=== PATIENT | male | born 1960 | race Caucasian/White ===

== ENCOUNTER 2022-06-17 07:55 | Outpatient (REF) | payer BC, SELFPAY ==
--- NOTE | ~2022-06-17 | XR_ITS ---
EXAMINATION: XR HIP, RIGHT CLINICAL INFORMATION: Right hip pain COMPARISON: None available. TECHNIQUE: Two views of the right hip. FINDINGS: Bones and soft tissues are normal. No fracture. Alignment is anatomic. Hip joint space is maintained. XR/XR hip RT min 2V IMPRESSION: Normal right hip.
[2022-06-17 09:41] LABS: MANUAL DIFF FLAG NO
[2022-06-17 10:32] LABS: Basophils Absolute Auto 0.1 X10*3/uL (0.0-0.2); Basophils Percent Auto 1.1 % (0-2); Eosinophils Absolute Auto 0.2 X10*3/uL (0.0-0.4); Eosinophils Percent Auto 2.2 % (0-4); Hematocrit 47.1 % (42.0-52.0); Hemoglobin 15.6 g/dl (14.0-18.0); Imm Gran Abs Auto 0.06 X10*3/uL (0.00-0.03); Imm Gran Pct Auto 0.8 % (0.0-0.4); Lymphocytes Absolute Auto 2.3 X10*3/uL (1.2-4.9); Lymphocytes Percent Auto 29.8 % (20-40); Mean Corpuscular HGB Conc 33.1 g/dl (31.0-36.0); Mean Corpuscular Hemoglobin 30.7 pg (27.0-33.0); Mean Corpuscular Volume 92.7 fL (80.0-98.0); Mean Platelet Volume 10.2 fL (9.4-12.4); Monocytes Absolute Auto 0.4 X10*3/uL (0.1-1.2); Monocytes Percent Auto 5.8 % (2-11); Neutrophils Absolute Auto 4.6 x10*3/uL (2.0-8.3); Neutrophils Percent Auto 60.3 % (45-73); Platelet Count 227 X10*3/uL (160-400); Red Blood Count 5.08 X10*6/uL (4.60-5.80); White Blood Count 7.6 X10*3/uL (4.8-10.8)
[2022-06-17 11:03] LABS: Alanine Aminotransferase 49 U/L (0-40); Albumin Level 4.2 g/dL (3.5-5.0); Alkaline Phosphatase 72 U/L (39-117); Anion Gap 11 (12-20); Aspartate Amino Transferase 36 U/L (5-37); Bilirubin Total 0.6 mg/dL (0.0-1.0); Blood Urea Nitrogen 10 mg/dL (9-16); Carbon Dioxide 26 mmol/L (22-29); Chloride 104 mmol/L (96-108); Estimated Glomerular Filt Rate 57; Glucose Random 95 mg/dL (60-115); Potassium 4.4 mmol/L (3.3-5.1); Sodium 137 mmol/L (135-145); Uric Acid 5.3 mg/dL (3.4-7.0)
== END 2022-06-17 07:56 | disposition home or self-care (01) ==
LOC: HO.XRAY 07:55
PROVIDERS: PCP Pediatrics; Visit Provider Nurse Practitioner Family
DX: M10.9 Gout, unspecified (principal); M25.551 Pain in right hip; M79.641 Pain in right hand; M25.50 Pain in unspecified joint; H60.90 Unspecified otitis externa, unspecified ear; M65.9 Synovitis and tenosynovitis, unspecified; Z79.899 Other long term (current) drug therapy
CPT/HCPCS: 36415; 73502; 80053; 84550; 85025

== ENCOUNTER → 2022-07-21 13:49 | Outpatient (BNVA) | payer BC, SELFPAY | PROVIDERS: PCP Pediatrics; Visit Provider Orthopaedic Surgery ==

== ENCOUNTER 2022-08-20 09:49 | Day surgery (SDC) | payer BC, SELFPAY ==
[2022-08-20 10:07] VITALS: BMI 35.9
[2022-08-20 10:09] VITALS: BP 137/75; PULSE 79; RESP 16; TEMP 36.6; O2SAT 96
--- NOTE | 2022-08-20 11:00 | MHC.SHP ---
Pre-Procedural Eval Section A Date of Service: 08/20/22 The patient is an INPATIENT: No Changes since office visit: No Cold of Flu in the past 2 weeks, No New Medical Problems, No Changes in Medication and No Patient answered all questions The History & Physical has been completed within 30 days and I have reviewed it.: Yes Section B Chief Complaint: Trigger finger, right ring finger Allergies: Allergies Allergy/AdvReac Type Severity Reaction Status Date / Time Penicillins Allergy Mild Rash Verified 07/21/22 14:00 tramadol Allergy Mild Headache Verified 07/21/22 14:00 Plan I have reviewed the history and physical and performed a pertinent physical examination on my patient. No changes have occurred unless specified. Time Spent With Patient Time: Total time managing care of this patient today ____ minutes.
--- NOTE | 2022-08-20 11:01 | P.OP_ITS ---
Operative Note Operative Note Date of Service: 08/20/22 Narrative: Operative Note Preop diagnosis: 1. right ring finger Trigger finger Postop diagnosis: 1. right ring finger Trigger finger Procedure: 1. right ring finger A1 becki release Surgeon: Allie Strickland MD Anesthesia: local block using 1% lidocaine with epinephrine Findings: No locking or catching after A1 becki release EBL: Less than 5 mL Tourniquet time: None Specimens: None Complications: None Disposition: Brought to recovery room in stable condition Plan: Follow-up for 10-14 days for wound check and suture removal Indications: The patient is 62 years old, with a right ring finger trigger finger that has been unresponsive to nonoperative management. The risks and benefits of operative treatment including but not limited to risk of damage to blood vessels, nerves, tendons, infection, persistent pain, persistent symptoms, recurrence or possible need for additional surgery were discussed with the patient and the patient wishes to proceed with surgery. Procedure: Once consent was obtained a local block was performed in the preop area using a combination of 1% lidocaine with epinephrine. The patient was then brought back to the operating suite and placed on the operative table in supine position. The right upper extremity was prepped and draped in a standard surgical fashion. Once assured that we had a good block, a 1.5 cm oblique incision was made c entered over the A1 becki of the right ring finger . The incision was made through the skin to the subcutaneous tissues using a #15 blade. Careful dissection was made down to the level of the A1 becki using tenotomy scissors, with care being taken to protect the nearby neurovascular structures. A longitudinal incision was made in the A1 becki 1st using a #15 blade, then using tenotomy scissors under direct visualization. The A1 becki was noted to be thickened. Following our A1 becki release, we no longer saw any locking or catching of the digit with flexion and extension. Once satisfied with our A1 becki release the wound was copiously irrigated with normal saline and hemostasis was obtained with a brief period of local pressure. The skin edges were reapproximated with some 5.0 nylon suture material and a sterile dressing was applied. The patient appears to have tolerated the procedure well and with no complications. All digits were well vascularized at the conclusion of the case.
[2022-08-20 11:53] VITALS: BP 136/67; PULSE 73; RESP 18; O2SAT 95
== END 2022-08-20 11:56 | disposition home or self-care (01) ==
PROVIDERS: PCP Pediatrics; Visit Provider Orthopaedic Surgery
PROC: (CPT 26055; principal; 2022-08-20 11:20)
DX: M65.341 Trigger finger, right ring finger (principal); M10.9 Gout, unspecified; E78.1 Pure hyperglyceridemia; E03.9 Hypothyroidism, unspecified; E66.9 Obesity, unspecified; Z79.899 Other long term (current) drug therapy; Z88.0 Allergy status to penicillin; Z88.8 Allergy status to other drugs, medicaments and biological substances
CPT/HCPCS: 26055; J0171

== ENCOUNTER → 2022-09-02 11:12 | Outpatient (BNVA) | payer BC, SELFPAY | PROVIDERS: Visit Provider Physician Assistant ==

== ENCOUNTER 2022-09-28 08:56 | Outpatient (AMB) | payer BC, SELFPAY ==
--- NOTE | 2022-09-28 08:58 | A.OFFVIS_ITS ---
Intake Vital Signs 09/28/22 09:03 Height 5 ft 10 in Weight 287 lb 11.252 oz BMI 41.3 BP 128/74 Blood Pressure Location Rt brachial Position Sitting Pulse 82 Pulse Source Pulse Oximeter Temp 97.3 F Temp Source Skin Pulse Oximetry (%) 95 Intake Visit Reasons: gout Intake Note: * Pt seen today for gout follow up. * Right elbow swollen and pain in hand; s/p right hand trigger finger surgery end of July. 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 He has known gout, currently on allopurinol 200 mg daily. In the past he had been on 300 mg daily but it was reduced. The uric acid target seemed to remain within the goal so he was continued on 200 mg daily. He was on colchicine but it was stopped last year because he had no further attacks. However he has been bothered more recently by painful swelling in the right olecranon region. From his descriptions this looks like a bursitis. It has usually been painful with pressure over the past 2 months. Intermittently it becomes swollen and more painful. No drainage has been noted. He claims to be compliant with taking the allopurinol every day. About a month ago he had surgery on the right 4th finger where he had some triggering. Triggering is gone but he still notes some stiffness in the finger and some pain at the 4th PIP when he tries to fully extend the 4th middle phalanx. [facility] Medical History Erectile dysfunction Gout Hypertriglyceridemia Hypothyroidism Obesity Trigger middle finger of right hand Surgical History S/P foot surgery, right Family History Father No problems noted. Son Diabetes Mother No problems noted. Social History Alcohol intake: current Alcohol intake frequency: holidays/special occasions only Patient Tobacco Use Status: Never used Tobacco Review of Systems Const Details: Negative for appetite change, weight change, fever, chills, malaise and fatigue Eyes Details: Negative for vision change, dry eyes,headaches and dizziness Card Details: Negative chest pain, edema and syncope Resp Details: Negative for SOB, cough and wheezing Skin/Breast Details: Negative for itching, rash, hives, Raynaud's symptoms, sun sensitivity, and skin cancer Rashad/Lymph Details: Negative for excessive bruising or bleeding. Physical Exam Vital Signs: Last Vital Signs Temp 97.3 F 09/28/22 09:03 Pulse 82 09/28/22 09:03 BP 128/74 09/28/22 09:03 Pulse Ox 95 09/28/22 09:03 BMI result Body Mass Index 41.3 APPEARANCE: Patient in no acute distress EXTREMITIES: No edema, no calf tenderness, normal peripheral pulses. SKIN: No inflammatory or neoplastic lesions. Normal color and turgor JOINT EXAM: Hands: LEFT: Normal pain-free range of motion without tenderness, swelling, increased warmth or erythema. 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 ? RIGHT:? Normal range of motion.? Tenderness to palpation over the flexor tendon of the 4th digit. No catching is detected. There is a bit more tenderness over the 4th PIP which is painful when he attempts to fully extend the middle phalanx. His other joints are not tender or painful. Wrists:? Normal pain-free range of motion without tenderness, swelling, increased warmth or erythema. Elbows: Right: Slight discomfort with extremes of normal flexion or extension. There is mild tenderness over the olecranon process with some slight thickening of the bursa but no redness, fluctuance or warmth. There is some minimal tenderness over the joint space without swelling. Left: Normal pain-free range of motion without tenderness, swelling, increased warmth or erythema. Shoulders: LEFT: Full range of motion without pain. No tenderness, weakness, swelling, increased warmth or erythema. ? RIGHT:? Full range of motion with pain during full abduction and flexion.? Some pain with internal rotation.? Tenderness to palpation over the AC joint.? No swelling, increased warmth or erythema. Hips: LEFT:? Full range of motion without pain. ? RIGHT:? Full range of motion without pain. Hip bursa:? No tenderness. Knees:? Normal pain-free range of motion without tenderness, swelling, increased warmth or erythema.? There is no effusion or crepitation Ankles:? Normal pain-free range of motion without tenderness, swelling, increased warmth or erythema. Feet: LEFT:? Normal pain-free range of motion without tenderness, swelling, increased warmth or erythema.? Significant bunion deformity.? Cock-up deformity of the 2nd toe consistent with hammertoe. ? RIGHT: Normal pain-free range of motion without tenderness, swelling, increased warmth or erythema.? Significant bunion deformity.? Cock-up deformity of the 2nd toe consistent with hammertoe. Healed scar over the first MTP. Results Reviewed Results Reviewed: Laboratory Tests 06/17/22 06/17/22 09:41 09:41 Hgb 15.6 Creatinine 1.28 Uric Acid 5.3 AST 36 ALT 49 H Assessment & Plan Assessment & Plan (1) Gout: Code(s): M10.9 - Gout, unspecified (2) Pain in right elbow: Code(s): M25.521 - Pain in right elbow (3) Olecranon bursitis, right elbow: Code(s): M70.21 - Olecranon bursitis, right elbow Plan His hyperuricemia seems corrected with current dose of allopurinol but he has been having these episodes of painful swelling in the right olecranon bursa. That does suggest gout so 1 wonder if we need to push harder on the allopurinol dose or not. There could be some intermittent infection in that area but today it does not look infected or even inflamed, just slightly tender. We will check an x-ray of the elbow. I will also repeat his uric acid and inflammatory markers. Certainly if the uric acid is above 6 we will increase the allopurinol dose and add colchicine. We may actually do that anyway in light of his recurrent symptoms in the right elbow. In the meantime he was told to avoid putting weight on the olecranon process which would be exacerbating any kind of bursitis that could be there. We will see him in the fall but I will get back to him with the results of his blood work. Orders: Orders C Reactive Protein Today M10.9 - Gout, unspecified Erythrocyte Sedimentation Rate Today M10.9 - Gout, unspecified Basic Metabolic Panel Today M10.9 - Gout, unspecified Uric Acid Today M10.9 - Gout, unspecified XR elbow RT min 3V Today M10.9 - Gout, unspecified, M25.521 - Pain in right elbow Coding Level of Care Code Est Pt Level 3 (79470) Diagnoses Gout M10.9 Pain in right elbow M25.521 Olecranon bursitis, right elbow M70.21
[2022-09-28 09:03] VITALS: BP 128/74; PULSE 82; TEMP 36.3; O2SAT 95; BMI 41.3
== END 2022-09-28 10:28 | disposition home or self-care (01) ==
PROVIDERS: PCP Pediatrics; Visit Provider Internal Medicine Rheumatology
DX: M10.9 Gout, unspecified (principal); M25.521 Pain in right elbow; M70.21 Olecranon bursitis, right elbow
CPT/HCPCS: 99213

== ENCOUNTER 2022-09-28 08:56 | Outpatient (REF) | payer BC, SELFPAY ==
--- NOTE | ~2022-09-28 | XR_ITS ---
EXAMINATION: XR ELBOW, RIGHT CLINICAL INFORMATION: Pain COMPARISON: None available. TECHNIQUE: AP, lateral, and oblique views of the right elbow. FINDINGS: No acute visible fracture or dislocation. Enthesopathy at the triceps tendon insertion site. Joint spaces and alignment are maintained. No large elbow joint effusion. Soft tissues are unremarkable. XR/XR elbow RT min 3V IMPRESSION: 1. No acute visible fracture or dislocation. 2. Enthesopathy at the triceps tendon insertion site.
== END 2022-09-28 08:57 | disposition home or self-care (01) ==
LOC: HO.XRAY 08:56
PROVIDERS: PCP Pediatrics; Visit Provider Internal Medicine Rheumatology
DX: M10.9 Gout, unspecified (principal); M25.521 Pain in right elbow; M70.21 Olecranon bursitis, right elbow
CPT/HCPCS: 73080

== ENCOUNTER 2022-09-28 10:32 | Outpatient (REF) | payer BC, SELFPAY ==
[2022-09-28 14:29] LABS: Erythrocyte Sedimentation Rate 12 MM/HR (0-15)
[2022-09-28 14:54] LABS: Anion Gap 14 (12-20); Blood Urea Nitrogen 12 mg/dL (9-16); C Reactive Protein 1.52 mg/dL (< or = 0.50); Calcium 9.5 mg/dL (8.4-10.2); Carbon Dioxide 23 mmol/L (22-29); Chloride 103 mmol/L (96-108); Estimated Glomerular Filt Rate > 60; Glucose Random 153 mg/dL (60-115); Potassium 4.2 mmol/L (3.3-5.1); Sodium 136 mmol/L (135-145); Uric Acid 5.3 mg/dL (3.4-7.0)
== END 2022-09-28 10:33 | disposition home or self-care (01) ==
LOC: HO.10HDL 10:32
PROVIDERS: Visit Provider Internal Medicine Rheumatology
DX: M10.9 Gout, unspecified (principal); M25.521 Pain in right elbow
CPT/HCPCS: 36415; 80048; 84550; 85652; 86140

== ENCOUNTER 2023-01-27 09:31 | Outpatient (REF) | payer BC, SELFPAY ==
--- NOTE | ~2023-01-27 | XR_ITS ---
EXAMINATION: XR SHOULDER, RIGHT CLINICAL INFORMATION: Right shoulder pain, history of mechanical fall 3 years ago. COMPARISON: None available. TECHNIQUE: AP external rotation, Grashey, scapular Y, and axillary views of the right shoulder. FINDINGS: BONES: Bony structures are intact. Small osteophyte is seen at inferior border of right humeral head. There is no focal bone destruction or periosteal reaction seen. JOINTS: Alignment of joints is normal. SOFT TISSUE: Soft tissue is normal. No radiopaque foreign body or abnormal air collection is seen. XR/XR shoulder RT min 2V IMPRESSION: 1. Osteoarthritis of the right glenohumeral joint. No fracture or dislocation or signs of osteomyelitis are found.
== END 2023-01-27 09:32 | disposition home or self-care (01) ==
LOC: HO.XRAY 09:31
PROVIDERS: PCP Pediatrics; Visit Provider Internal Medicine Rheumatology
DX: M25.511 Pain in right shoulder (principal)
CPT/HCPCS: 73030

== ENCOUNTER 2023-01-27 09:31 | Outpatient (AMB) | payer BC, SELFPAY ==
--- NOTE | 2023-01-27 09:42 | MHC.OFFVIS ---
Intake Vital Signs 01/27/23 09:49 Height 5 ft 10 in Weight 281 lb 12.012 oz BMI 40.4 BP 136/78 Blood Pressure Location Lt brachial Position Sitting Pulse 78 Pulse Source Pulse Oximeter Temp 97.1 F Temp Source Skin Pulse Oximetry (%) 98 Oxygen Delivery Method Room Air Intake Visit Reasons: Gout Intake Note: Patient presents today to follow up on gout. c/o left elbow pain, on and off, states it does not feel like a gout flare up. 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 He remains on 200 mg allopurinol daily but actually stopped it 2 weeks ago when he had a URI. He was concerned that allopurinol could be impairing his recovery from the URI. In any case he has not had any gout attacks for quite some time. He does get some occasional right elbow pain over the olecranon region and also right shoulder pain. Shoulder pain dates back he says about 3 years. He had fallen on some ice. It was quite painful for a few days and then gradually subsided but seems to come back intermittently over the last year or 2. It is worse when he is more active. [facility] Medical History Erectile dysfunction Gout Hypertriglyceridemia Hypothyroidism Obesity Trigger middle finger of right hand Surgical History S/P foot surgery, right Family History Father No problems noted. Son Diabetes Mother No problems noted. Social History Alcohol intake: current Alcohol intake frequency: holidays/special occasions only Patient Tobacco Use Status: Never used Tobacco Review of Systems Const Details: Negative for appetite change, weight change, fever, chills, malaise and fatigue Eyes Details: Negative for vision change, dry eyes,headaches and dizziness ENT Details: Recent URI with nasal congestion and rhinorrhea. Negative for hearing change, tinnitus, oral ulcer, nose bleeds and oral dryness. Card Details: Negative chest pain, edema and syncope Resp Details: Recent URI with nonproductive cough but that has subsided. Negative for SOB, cough and wheezing GI Details: Negative indigestion/heartburn, nausea, abdominal pain, bowel changes, diarrhea, constipation and bloody stool. Skin/Breast Details: Negative for itching, rash, hives, Raynaud's symptoms, sun sensitivity, and skin cancer Endo Details: Negative for polyuria and polydypsia Rashad/Lymph Details: Negative for excessive bruising or bleeding. Physical Exam Vital Signs: Last Vital Signs Temp 97.1 F 01/27/23 09:49 Pulse 78 01/27/23 09:49 BP 136/78 01/27/23 09:49 Pulse Ox 98 01/27/23 09:49 Oxygen Delivery Method Room Air 01/27/23 09:49 BMI result Body Mass Index 40.4 APPEARANCE: Patient in no acute distress Hands: LEFT: Normal pain-free range of motion without tenderness, swelling, increased warmth or erythema. 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 ? RIGHT:? Normal range of motion.? No flexor tendon tenderness, swelling or catching is detected. His MCP and PIP joints are not tender or painful the with motion. Wrists:? Normal pain-free range of motion without tenderness, swelling, increased warmth or erythema. Elbows: Right: No discomfort with extremes of normal flexion or extension. There is minimal tenderness over the olecranon process with some slight thickening of the bursa but no redness, fluctuance or warmth. There is some no tenderness over the joint space without swelling. Left: Normal pain-free range of motion without tenderness, swelling, increased warmth or erythema. Shoulders: LEFT: Full range of motion without pain. No tenderness, weakness, swelling, increased warmth or erythema. ? RIGHT:? Mild to moderate pain with abduction 120 degrees or with extremes of internal or external rotation. There is mild anterior and subacromial tenderness without swelling, adenopathy or abductor weakness. Slight tenderness over the AC joint.? . Hips: LEFT:? Full range of motion without pain. ? RIGHT:? Full range of motion without pain. Hip bursa:? No tenderness. Knees:? Normal pain-free range of motion without tenderness, swelling, increased warmth or erythema.? There is no effusion or crepitation Ankles:? Normal pain-free range of motion without tenderness, swelling, increased warmth or erythema. Feet: LEFT:? Normal pain-free range of motion without tenderness, swelling, increased warmth or erythema.? Significant bunion deformity.? Cock-up deformity of the 2nd toe consistent with hammertoe. ? RIGHT: Normal pain-free range of motion without tenderness, swelling, increased warmth or erythema.? Significant bunion deformity.? Cock-up deformity of the 2nd toe consistent with hammertoe. The 1st MTP has no motion from previous fusion. There is a healed nontender scar over the first MTP. ? Results Reviewed Results Reviewed: Laboratory Tests 06/17/22 06/17/22 09/28/22 09:41 09:41 10:35 ESR 12 Uric Acid 5.3 AST 36 ALT 49 H C-Reactive Protein 1.52 H 09/28/22 10:35 ESR Uric Acid 5.3 AST ALT C-Reactive Protein [address] [address] XRay Report Signed Patient: Gary Araujo MR#: [id number] : 1960 Acct:[id number] Age/Sex: 62 / M ADM Date: 09/28/[address]: Gary Quintero MD Ordering Physician: Gary Quintero MD Date of Service: 09/28/22 Procedure(s): XR elbow RT min 3V Accession Number(s): [id number] cc: Gary Quintero MD~ EXAMINATION: XR ELBOW, RIGHT CLINICAL INFORMATION: Pain COMPARISON: None available. TECHNIQUE: AP, lateral, and oblique views of the right elbow. FINDINGS: No acute visible fracture or dislocation. Enthesopathy at the triceps tendon insertion site. Joint spaces and alignment are maintained. No large elbow joint effusion. Soft tissues are unremarkable. XR/XR elbow RT min 3V IMPRESSION: 1. No acute visible fracture or dislocation. 2. Enthesopathy at the triceps tendon insertion site. Dictated By: Casper Almodovar MD Signed By: <Electronically signed by Casper Almodovar MD in OV> Assessment & Plan Assessment & Plan (1) Shoulder pain, right: Code(s): M25.511 - Pain in right shoulder (2) Olecranon bursitis, right elbow: Code(s): M70.21 - Olecranon bursitis, right elbow (3) Gout: Code(s): M10.9 - Gout, unspecified Plan The gout symptoms and hyperuricemia seem well controlled with current dose of allopurinol. I told him it was not advisable to stop and start the allopurinol as such maneuvers could trigger gout attacks. He will go back on 100 mg for 5 days and back up to his usual dose of 200 mg daily. The patient has some mild tenderness in the right olecranon bursa region associated with an olecranon spur. So this looks like some bursitis. It is not significantly bothering him right now. The right shoulder pain with motion has been present off and on for years. It sounds like he might have injured the rotator cuff with a fall many years ago. We will check an x-ray to see what the glenohumeral and AC joints look like. He is sent for physical therapy. We will have him back in a few months to see if the shoulder is improving. At that point he may benefit from an injection or surgical evaluation. Orders: Orders XR shoulder RT min 2V Today M25.511 - Pain in right shoulder PT Evaluation and Treatment Today M25.511 - Pain in right shoulder Coding Level of Care Code Est Pt Level 3 (61370) Diagnoses Shoulder pain, right M25.511 Olecranon bursitis, right elbow M70.21 Gout M10.9
[2023-01-27 09:49] VITALS: BP 136/78; PULSE 78; TEMP 36.2; O2SAT 98; BMI 40.4
== END 2023-01-27 10:10 | disposition home or self-care (01) ==
PROVIDERS: PCP Pediatrics; Visit Provider Internal Medicine Rheumatology
DX: M25.511 Pain in right shoulder (principal); M70.21 Olecranon bursitis, right elbow; M10.9 Gout, unspecified
CPT/HCPCS: 99213

== ENCOUNTER 2023-03-11 10:00 | Outpatient (RCR) | payer BC, SELFPAY ==
--- NOTE | 2023-02-16 09:41 | MHC.PT.EP ---
[facility] [place] Office [place] Office [place] Office [address] Dana Goins [address] [phone] F: [phone] F: [phone] F: [phone] F: [phone] Physical Therapy Plan of Care Date of Evaluation: 02/16/23 Date of Surgery: N/A Diagnosis: right shoulder pain (RL) Assessment: pt is a 62 y/o male presenting to physical therapy w/ referring diagnosis of right shoulder pain. Impairments include pain, decreased range of motion, decreased strength, impaired functional mobility, impaired postural awareness, and altered ambulation mechanics. pt is a good candidate for skilled PT due to age, potential remediation of impairments, typical disease/condition progression and prognosis, comorbidities, and motivation. pt would benefit from skilled PT intervention to provide a tailored strengthening and stretching exercise program, functional training, gait training, postural re-training, neuromuscular re-education, modalities as needed for pain, equipment safety demonstration. Frequency and Duration: The patient will be seen 2x/wk for 4 wks Short Term Goals: pt will be I w/ HEP to promote self-management of condition. pt will improve R shoulder flexion by at least 10 degrees to promote ease in reaching for objects on higher shelves. Intermediate Goals: pt will report a statistically significant improvement in self-reported outcome measure, SPADI, to promote return to PLOF. pt will report <2/10 R shoulder pain w/ lifting 30# object from floor to waist height x5 reps. Treatment Plan: Modalities to reduce pain, spasms and effusion. Manual therapy to restore motion and function. Therapeutic exercise to improve strength and flexibility. Neuromuscular re-education for posture and balance. Therapeutic activities to return to functional activities of daily living. Electronically signed by: Vannesa Lind PT, DPT Please sign and return to therapist. Thank you for your referral.
--- NOTE | 2023-03-11 15:17 | MHC.PT.DC ---
[facility] [place] Office [place] Office [place] Office [address] Dana Goins [address] [facility] [phone] F: [phone] F: [phone] F: [phone] F: [phone] Physical Therapy Discharge Report Diagnosis: right shoulder pain (RL) Date of Surgery: N/A Date of Evaluation: 02/16/23 Date of Discharge: 03/11/23 Treatments to Date: 8 Cancellations to Date: 0 No Shows to Date: 0 Discharge Status: Improved Function Independent with HEP Discharge Summary: The patient overall has been reporting less intense shoulder pain. He is able to do more with his arms including working out his upper body at the gym. He is independent with his home exercise program and is discharged with the recommendation to continue on his own. Electronically signed by: Vannesa Lind PT, DPT Please sign and return to therapist. Thank you for your referral.
== END 2023-03-11 15:17 | disposition home or self-care (01) ==
LOC: HO.PT 10:00
PROVIDERS: PCP Pediatrics; Visit Provider Internal Medicine Rheumatology
DX: M25.511 Pain in right shoulder (principal)
CPT/HCPCS: 97110; 97161; 97530

== ENCOUNTER 2023-04-21 09:07 | Outpatient (AMB) | payer BC, SELFPAY ==
--- NOTE | 2023-04-21 09:09 | A.OFFVIS_ITS ---
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 Quintero, presents today for shoulder pain follow up. PT has been attending PT. Reports burning sensation on right shoulder, one episode last week that lasted 2-3 days. Retanner Required: No Accompanied by: Self / Same As Patient Allergies Penicillins Allergy (Mild, Verified 04/21/23 09:09) Rash tramadol Allergy (Mild, Verified 04/21/23 09:09) Headache HPI HPI Comments History of Present Illness Details Mr. Araujo, 63yoM returns for evaluation of his gout. He remains on 200 mg allopurinol daily. He denies any gout flares for quite some time and none since last visit 12/2022. He does get some occasional right elbow pain over the olecranon region and also right shoulder pain. Shoulder pain dates back he says about 3 years. He had fallen on some ice. He did finist PT about 4 weeks ago and he found that to be helpful. But this week he reached overhead to a cupboard and felt a twinge. It is worse when he is more active. Concerns to see the podiatry soon --painful callus under bilateral foot pa d --broken fixation plate right big toe wi th mild bruising. [facility] Medical History (Reviewed 09/02/22 @ 11:17 by Salena Webb [facility]) Erectile dysfunction Gout Hypertriglyceridemia Hypothyroidism Obesity Trigger middle finger of right hand Surgical History S/P foot surgery, right Family History Father No problems noted. Son Diabetes Mother No problems noted. Social History Alcohol intake: current Alcohol intake frequency: holidays/special occasions only Patient Tobacco Use Status: Never used Tobacco Review of Systems Const All systems reviewed & are unremarkable except as noted in HPI and below Physical Exam Vital Signs: Last Vital Signs Temp 97 F 04/21/23 09:10 Pulse 85 04/21/23 09:10 BP 108/74 04/21/23 09:10 Pulse Ox 98 04/21/23 09:10 Oxygen Delivery Method Room Air 04/21/23 09:10 BMI result Body Mass Index 39.6 APPEARANCE: Patient in no acute distress NECK:? No thyromegaly or masses, no adenopathy, trachea midline. HEART:? Regular rhythm, S1-S2 heard, no murmurs, rubs or gallops. LUNG:? Clear to percussion and auscultation Hands: LEFT: Normal pain-free range of motion without tenderness, swelling, increased warmth or erythema. Able to make a full fist and has a good alliance director strength. ? RIGHT:? Normal range of motion.? No flexor tendon tenderness, swelling or catching is detected. His MCP and PIP joints are not tender or painful the with motion. Wrists:? Normal pain-free range of motion without tenderness, swelling, increased warmth or erythema. Elbows: Right: No discomfort with extremes of normal flexion or extension. There is no more tenderness over the olecranon process but there is some slight thickening of the bursa but no redness, fluctuance or warmth. There is no tenderness over the joint space, no swelling. Left: Normal pain-free range of motion without tenderness, swelling, increased warmth or erythema. Shoulders: LEFT: Full range of motion without pain. No tenderness, weakness, swelling, increased warmth or erythema. ? RIGHT:? Mild to moderate pain with abduction 120 degrees or with extremes of internal or external rotation. There is mild anterior and subacromial tenderness without swelling, adenopathy or abductor weakness. Slight tenderness over the AC joint.? . Hips: LEFT:? Full range of motion without pain. ? RIGHT:? Full range of motion without pain. Hip bursa:? No tenderness. Knees:? Normal pain-free range of motion without tenderness, swelling, increased warmth or erythema.? There is no effusion or crepitation Ankles:? Normal pain-free range of motion without tenderness, swelling, increased warmth or erythema. Feet: LEFT:? Normal pain-free range of motion without tenderness, swelling, increased warmth or erythema.? Significant bunion deformity.? Cock-up deformity of the 2nd toe consistent with hammertoe. ? RIGHT: Normal pain-free range of motion without tenderness, swelling, increased warmth or erythema.? Significant bunion deformity.? Cock-up deformity of the 2nd toe consistent with hammertoe. The 1st MTP has no motion from previous fusion. There is a healed nontender scar over the first MTP with some bruising on the anterior lateral, cold to the touch. anterior Lateral right great toe has no sensitivity to touch and is cold to the touch. ? Results Reviewed Results Reviewed: 12/2022 EXAMINATION: XR SHOULDER, RIGHT CLINICAL INFORMATION: Right shoulder pain, history of mechanical fall 3 years ago. COMPARISON: None available. TECHNIQUE: AP external rotation, Grashey, scapular Y, and axillary views of the right shoulder. FINDINGS: BONES: Bony structures are intact. Small osteophyte is seen at inferior border of right humeral head. There is no focal bone destruction or periosteal reaction seen. JOINTS: Alignment of joints is normal. SOFT TISSUE: Soft tissue is normal. No radiopaque foreign body or abnormal air collection is seen. XR/XR shoulder RT min 2V IMPRESSION: 1. Osteoarthritis of the right glenohumeral joint. No fracture or dislocation or signs of osteomyelitis are found. Assessment & Plan Assessment & Plan (1) Shoulder pain, right: Code(s): M25.511 - Pain in right shoulder Qualifiers: Chronicity: chronic Qualified Code(s): M25.511 - Pain in right shoulder; G89.29 - Other chronic pain (2) Olecranon bursitis, right elbow: Code(s): M70.21 - Olecranon bursitis, right elbow (3) Gout: Code(s): M10.9 - Gout, unspecified Qualifiers: Gout site: multiple sites Gout etiology: idiopathic Presence of tophus: with tophus Chronicity: chronic Qualified Code(s): M1A.09X1 - Idiopathic chronic gout, multiple sites, with tophus (tophi) Plan #Gout/Right Elbow Bursitis: Mr. Araujo has crystal proven gout. He hs had aspirations in the past and urate crystals were seen in the aspirate. The gout symptoms and hyperuricemia seem well controlled with current dose of allopurinol 200 mg QD. There is no tenderness in the right olecranon bursa region on PE and it is bothersome to him now. His colchicine has so I will give him some colchicine to have on hand. We need update labs for today and 1 week before next visit. #Right Shoulder Pain: Completed PE. The right shoulder pain with motion has been present off and on for years. It sounds like he might have injured the rotator cuff with a fall many years ago. Imaging shows OA. He completed Physical therapy and found it to be helpful. I encouraged patient to do the exercises at home consistently as recommended by PT. We will have him back in 6 months. Orders: Orders Erythrocyte Sedimentation Rate Today M10.9 - Gout, unspecified, M70.21 - Olecranon bursitis, right elbow Comprehensive Met. 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 Panel 6 Months M10.9 - Gout, unspecified, M70.21 - Olecranon bursitis, right elbow Medications: New colchicine 0.6 mg PO DAILY PRN 10 tabs 0RF Gout Flare M10.9 - Gout, unspecified Coding Level of Care Code Est Pt Level 3 (03599) Diagnoses Chronic right shoulder pain M25.511; G89.29 Chronicity: chronic Olecranon bursitis, right elbow M70.21 Idiopathic chronic gout of multiple sites with tophus M1A.09X1 Gout site: multiple sites Gout etiology: idiopathic Presence of tophus: with tophus Chronicity: chronic
[2023-04-21 09:10] VITALS: BP 108/74; PULSE 85; TEMP 36.1; O2SAT 98; BMI 39.6
== END 2023-04-21 10:11 | disposition home or self-care (01) ==
PROVIDERS: PCP Pediatrics; Visit Provider Nurse Practitioner Family
DX: M25.511 Pain in right shoulder (principal); G89.29 Other chronic pain; M70.21 Olecranon bursitis, right elbow; M1A.09X1 Idiopathic chronic gout, multiple sites, with tophus (tophi)
CPT/HCPCS: 99213

== ENCOUNTER 2023-04-21 09:07 | Outpatient (REF) | payer BC, SELFPAY ==
[2023-04-21 10:17] LABS: MANUAL DIFF FLAG NO
[2023-04-21 10:43] LABS: Basophils Absolute Auto 0.1 X10*3/uL (0.0-0.2); Basophils Percent Auto 0.9 % (0-2); Eosinophils Absolute Auto 0.2 X10*3/uL (0.0-0.4); Eosinophils Percent Auto 2.5 % (0-4); Hematocrit 48.4 % (42.0-52.0); Hemoglobin 16.3 g/dl (14.0-18.0); Imm Gran Abs Auto 0.04 X10*3/uL (0.00-0.03); Imm Gran Pct Auto 0.5 % (0.0-0.4); Lymphocytes Absolute Auto 2.6 X10*3/uL (1.2-4.9); Lymphocytes Percent Auto 30.1 % (20-40); Mean Corpuscular HGB Conc 33.7 g/dl (31.0-36.0); Mean Corpuscular Hemoglobin 30.1 pg (27.0-33.0); Mean Corpuscular Volume 89.3 fL (80.0-98.0); Mean Platelet Volume 10.1 fL (9.4-12.4); Monocytes Absolute Auto 0.5 X10*3/uL (0.1-1.2); Monocytes Percent Auto 6.1 % (2-11); Neutrophils Absolute Auto 5.1 x10*3/uL (2.0-8.3); Neutrophils Percent Auto 59.9 % (45-73); Platelet Count 233 X10*3/uL (160-400); Red Blood Count 5.42 X10*6/uL (4.60-5.80); Red Cell Distribution Width 12.9 % (11.0-16.0); White Blood Count 8.6 X10*3/uL (4.8-10.8)
[2023-04-21 11:10] LABS: Alanine Aminotransferase 25 U/L (0-40); Albumin Level 4.1 g/dL (3.5-5.0); Alkaline Phosphatase 82 U/L (39-117); Anion Gap 11 (12-20); Aspartate Amino Transferase 25 U/L (5-37); Bilirubin Total 0.6 mg/dL (0.0-1.0); Blood Urea Nitrogen 14 mg/dL (9-16); Calcium 9.8 mg/dL (8.4-10.2); Carbon Dioxide 28 mmol/L (22-29); Chloride 103 mmol/L (96-108); Estimated Glomerular Filt Rate > 60; Glucose Random 84 mg/dL (60-115); Potassium 4.3 mmol/L (3.3-5.1); Sodium 138 mmol/L (135-145); Total Protein 7.8 g/dL (6.5-8.0); Uric Acid 6.6 mg/dL (3.4-7.0)
[2023-04-21 11:34] LABS: Erythrocyte Sedimentation Rate 13 MM/HR (0-15)
== END 2023-04-21 09:08 | disposition home or self-care (01) ==
LOC: HO.LAB 09:07
PROVIDERS: PCP Pediatrics; Visit Provider Nurse Practitioner Family
DX: M1A.09X1 Idiopathic chronic gout, multiple sites, with tophus (tophi) (principal); M70.21 Olecranon bursitis, right elbow; M25.511 Pain in right shoulder
CPT/HCPCS: 36415; 80053; 84550; 85025; 85652; 86140

== ENCOUNTER 2024-12-07 09:21 | Outpatient (REF) | payer OTHER, SELFPAY ==
[2024-12-07 14:12] LABS: Alanine Aminotransferase 21 U/L (0-40); Aspartate Amino Transferase 27 U/L (5-37); Estimated Glomerular Filt Rate > 60
[2024-12-07 16:35] LABS: Uric Acid 7.7 mg/dL (3.4-7.0)
== END 2024-12-07 09:22 | disposition home or self-care (01) ==
LOC: HO.HKASLDS 09:21
PROVIDERS: PCP Pediatrics; Visit Provider Internal Medicine Rheumatology
DX: M25.561 Pain in right knee (principal); M1A.09X1 Idiopathic chronic gout, multiple sites, with tophus (tophi); M65.90 Unspecified synovitis and tenosynovitis, unspecified site
CPT/HCPCS: 20550; 36415; 82565; 84450; 84460; 84550; J2003; J3301

== ENCOUNTER 2024-12-07 09:21 | Outpatient (AMB) | payer BC, SELFPAY ==
--- NOTE | 2024-12-07 08:51 | A.OFFVIS_ITS ---
Vital Signs 12/07/24 09:23 Height 5 ft 10 in Weight 255 lb 11.779 oz BMI 36.7 BP 130/76 Blood Pressure Location Lt brachial Position Sitting Pulse 61 Pulse Source Pulse Oximeter Pulse Oximetry (%) 97 Oxygen Delivery Method Room Air Intake Visit Reasons: joint pain Intake Note: Patient Presents today for joint pain in left hand and right knee. Accompanied by: Self / Same As Patient Allergies Penicillins Allergy (Mild, Verified 12/07/24 09:23) Rash tramadol Allergy (Mild, Verified 12/07/24 09:23) Headache HPI HPI joint pain: Details: No gout flares since last visit 04/2023. He has been without his medication for 4 months. Rheumatology history: He was hospitalized twice for podagra. He had fusion of right first MTP with plate placement. When he followed up with his [employer] rede[employer] specialist, he was told that the plate is broken. He also had olecranon bursitis secondary to gout and was told that there were crystals in the fluid. This occurred at [facility]. Left 4th finger is triggering few times a day. His left 4th finger has been triggering for at least 2 months. He had trigger finger release of right 4th finger with resolution of symptoms in the past. His left knee has been giving out on him at least 3 times a week when he extends it. It recently started occurring in the last few weeks. He has pain in his left knee. No symptoms in his right knee. He has lost weight. [facility] Medical History Hypertriglyceridemia Trigger middle finger of right hand Obesity Erectile dysfunction Hypothyroidism Gout Surgical History S/P foot surgery, right Family History Father No problems noted. Son Diabetes Mother No problems noted. Social History Alcohol intake: current Alcohol intake frequency: holidays/special occasions only Patient Tobacco Use Status: Never used Tobacco Physical Exam Vital Signs: Last Vital Signs Pulse 61 12/07/24 09:23 BP 130/76 12/07/24 09:23 Pulse Ox 97 12/07/24 09:23 Oxygen Delivery Method Room Air 12/07/24 09:23 BMI result Body Mass Index 36.7 Const Other: General: Comfortable CVS: RRR Respiratory: clear to auscultation bilaterally. Good respiratory effort Skin: No lesions seen MSK: Normal range of motion of upper extremities. No tophus present. Tender to palpate lateral joint line of right knee. No knee effusion. Normal range of motion. No crepitus palpated. Hammertoes of bilateral feet with bilateral hallux valgus deformity. No synovitis or dactylitis present. No triggering of fingers observed. Tender to palpate nodule palmar aspect of left 4th finger. Office Procedures AMB Joint Injection/Aspiration Joint Injection/Aspiration Details: Trigger finger left 4th Prep: site was prepped using aseptic technique Injected: 10 mg of, Kenalog, with 0.25 mL of and 1% plain lidocaine Procedure: Informed verbal consent was obtained. The patient tolerated the procedure well. Postprocedure protocol was discussed with patient. Coding Procedure code (CPT) selection complete (cPT code 31458) Office Meds lidocaine (PF) 10 mg/mL (1 %) injection solution Performing Provider: Rad Helms MD Performing Location: [facility] Administered by: Elda Colby RN on 12/07/24 11:20 Dose Route Admin Location Dispensed Lot Number Expiration Date [facility] Data Processing Consultant 0.25 mL Infiltration 2 mL [id number] 07/29/26 00262-963-40 [employer] Total Dispensed Waste 2 mL 87.5 % Kenalog 40 mg/mL suspension for injection Performing Provider: Rad Helms MD Performing Location: [facility] Administered by: Elda Colby RN on 12/07/24 11:20 Dose Route Admin Location Dispensed Lot Number Expiration Date [facility] Data Processing Consultant 10 mg intra-articular 1 mL [id number] 08/28/26 [address]-9 [employer] Total Dispensed Waste 1 mL 75 % Assessment & Plan Assessment & Plan (1) Right knee pain: Comment: Pain is localized to right lateral joint space. Right knee is giving out on him. He agreed to PT for knee strengthening. Code(s): M25.561 - Pain in right knee Category: Medical Plan: PT ordered X-ray right knee ordered Right knee hinged brace prescribed Return to clinic in 4 months (2) Gout: Comment: He has been without allopurinol for 4 months. Gout is diet controlled. Code(s): M10.9 - Gout, unspecified Category: Medical Qualifiers: Chronicity: chronic Gout etiology: idiopathic Gout site: multiple sites Presence of tophus: with tophus Qualified Code(s): M1A.09X1 - Idiopathic chronic gout, multiple sites, with tophus (tophi) Plan: I will check uric acid level and labs prior to restarting allopurinol 200 mg daily Return to clinic in 4 months (3) Flexor tenosynovitis of finger: Code(s): M65.9 - Synovitis and tenosynovitis, unspecified Category: Medical Plan: Patient received cortisone injection to treat left 4th trigger finger Letter for work given to patient to have light duties today Return to clinic in 4 months Orders: Orders PT Evaluation and Treatment Today M25.561 - Pain in right knee XR knee RT 2V Today M25.561 - Pain in right knee Alanine Aminotransferase Today M1A.09X1 - Idiopathic chronic gout, multiple sites, with tophus (tophi) Creatinine Today M1A.09X1 - Idiopathic chronic gout, multiple sites, with tophus (tophi) AMB Joint Injection/Aspiration Today M65.9 - Synovitis and tenosynovitis, unspecified Aspartate Amino Transferase Today M1A.09X1 - Idiopathic chronic gout, multiple sites, with tophus (tophi) Uric Acid Today M1A.09X1 - Idiopathic chronic gout, multiple sites, with tophus (tophi) Medications: New leg brace (Knee Support Brace) As directed Right knee hinge brace Dx: osteoarthritis 1 ea 0RF Changed From allopurinol 200 mg PO DAILY To allopurinol 200 mg (2 x 100 mg) PO DAILY 180 tabs 4RF 90 days Coding Level of Care Code Est Pt Level 4 (37172) Complex EM visit Add On G2211 Diagnoses Right knee pain M25.561 Idiopathic chronic gout of multiple sites with tophus M1A.09X1 Chronicity: chronic Gout etiology: idiopathic Gout site: multiple sites Presence of tophus: with tophus Flexor tenosynovitis of finger M65.9 Time Spent (min) 30
[2024-12-07 09:23] VITALS: BP 130/76; PULSE 61; O2SAT 97; BMI 36.7
== END 2024-12-07 10:05 | disposition home or self-care (01) ==
LOC: HO.RHES 09:21
PROVIDERS: PCP Pediatrics; Visit Provider Internal Medicine Rheumatology
DX: M25.561 Pain in right knee (principal); M1A.09X1 Idiopathic chronic gout, multiple sites, with tophus (tophi); M65.342 Trigger finger, left ring finger
CPT/HCPCS: 20550; 99214

== ENCOUNTER 2024-12-08 12:19 | Outpatient (REF) | payer OTHER, SELFPAY ==
--- NOTE | ~2024-12-08 | XR_ITS ---
EXAMINATION: XR KNEE, RIGHT CLINICAL INFORMATION: M25.561 - Pain in right knee COMPARISON: None available. TECHNIQUE: Two views of the right knee. FINDINGS: No evidence of acute fracture or dislocation. Severe patellofemoral arthritis. Mild medial compartment arthritis. No significant effusion. A 1.5 cm and a 1.3 cm ossification posteriorly, could reflect loose bodies. XR/XR knee RT 2V IMPRESSION: No acute osseous findings. Severe patellofemoral arthritis. There are 2 ossific densities posteriorly, could reflect loose bodies. Electronically signed by: Edis Scott MD 12/08/2024 01:23 PM EDT
== END 2024-12-08 12:20 | disposition home or self-care (01) ==
LOC: HO.XRAY 12:19
PROVIDERS: PCP Pediatrics; Visit Provider Internal Medicine Rheumatology
DX: M25.561 Pain in right knee (principal)
CPT/HCPCS: 73560

== ENCOUNTER → 2024-12-08 12:23 | Outpatient (BNV) | payer OTHER, SELFPAY | PROVIDERS: PCP Pediatrics; Visit Provider Radiology Diagnostic Ultrasound | DX: M22.2X1 Patellofemoral disorders, right knee (principal) | CPT/HCPCS: 73560 ==